=== PATIENT | male | born 1965 | race Caucasian/White ===

== ENCOUNTER 2017-03-07 15:03 | Inpatient (IN) | payer OTHER ==
--- NOTE | 2017-03-07 15:11 | PDOC ---
Rapid Medical Evaluation Time Seen by Provider: 03/07/17 15:05 Medical Evaluation: 03/07/17 15:05 I have performed a brief in-person evaluation of this patient. The patient presents with a chief complaint of: drop foot from disc herniation ( S1, L4/5) per neurosurgery MD Dr. Jeffrey (seen in office yesterday), pain hip/R calf & ankle, took 3 aleves a while ago Pertinent physical exam findings: no flexion to R foot I have ordered the following: preop labs, ekg The patient will proceed to the ED for further evaluation. Discharge Disposition - Diagnosis Foot drop - Referrals - Patient Instructions - Post Discharge Activity
--- NOTE | 2017-03-07 16:27 | PDOC ---
Attending Attestation - Resident Resident Name: Ricardo Mckay - ED Attending Attestation I have performed the following: I have examined & evaluated the patient, The case was reviewed & discussed with the resident, I agree w/resident's findings & plan, Exceptions are as noted - Medical Decision Making 03/07/17 16:27 I, Dr. Marcelina Bustillos, DO, attest that this document has been prepared under my direction and personally reviewed by me in its entirety. I further attest, that it accurately reflects all work, treatment, procedures and medical decision -making performed by me. 03/07/17 17:05 a/p: 51yo male with LBP sent in by Dr. Knowles for preop workup for OR tomorrow -foot drop on R decreased sensation on R had outpt MRI per DR. Knowles needs CT lumbar spine and preop labs, going to OR in AM will check labs, ekg, cxr tenderness of piriformis on R 03/07/17 19:[address] knowles who recommends admission to hospitalist case discussed with IM resident Kimberley who accepts pt under Dr. Alexandre <Marcelina Bustillos - Last Filed: 03/07/17 19:34> - HPI HPI: 03/07/17 20:29 Patient is a 51 year old male with a significant past medical history L4-L5, L5- S1 disc herniation, who presents to the ED with complaints of General right sided body pain. Patient reports experiencing right leg that began earlier this week. He reports pain has been chronic, but states it began to increase in intensity, prompting him to see Dr. knowles this morning. Patient states pain is a constant sharp pain that does not radiate. Patient states he began to show signs of right foot drop prompting physician to refer him to the ED for further evaluation. He reports that he is currently followed by a chiropractor for his herniated disk. Denies chest pain, SOB. Denies fevers, chills. Denies nausea, vomiting. Denies contact with sick individuals, out of state travelling. Denies trauma to affected area. Denies any other symptoms. Allergies: Mushroom Social history: No smoking. Social drinker. Medical marijuana use. Surgical history: None PM: Not on staff. - Physicial Exam PE: 03/07/17 20:29 GENERAL: Awake, alert, and fully oriented, in no acute distress HEAD: No signs of trauma EYES: PERRLA, EOMI, sclera anicteric, conjunctiva clear ENT: Auricles normal inspection, hearing grossly normal, nares patent, oropharynx clear without exudates. Moist mucosa NECK: Normal ROM, supple, no lymphadenopathy, JVD, or masses LUNGS: Breath sounds equal, clear to auscultation bilaterally. No wheezes, and no crackles HEART: Regular rate and rhythm, normal S1 and S2, no murmurs, rubs or gallops ABDOMEN: Soft, nontender, normoactive bowel sounds. No guarding, no rebound. No masses EXTREMITIES: +Decreases in right anterior tibia. + Normal range of motion, no edema. No clubbing or cyanosis. No cords, erythema, or tenderness NEUROLOGICAL: Cranial nerves II through XII grossly intact. Normal speech, normal gait SKIN: Warm, Dry, normal turgor, no rashes or lesions noted. Tender at the right piriformis - Medical Decision Making 03/07/17 20:29 Documentation prepared by Alexys Jameson, acting as medical van driver for Marcelina Bustillos DO, MD/. <Alexys Jameson - Last Filed: 03/07/17 20:29> Discharge Disposition - Discharge Dispostion Admit: Yes <Marcelina Bustillos - Last Filed: 03/07/17 19:34> <Alexys Jameson - Last Filed: 03/07/17 20:29> - Diagnosis Foot drop, Herniated lumbar intervertebral disc - Discharge Dispostion Condition at time of disposition: Fair - Referrals Referrals: STAFF,NOT ON [Primary Care Provider] - - Patient Instructions - Post Discharge Activity
--- NOTE | 2017-03-07 16:39 | PDOC ---
History of Present Illness - General Chief Complaint: Pain Stated Complaint: EVALUATION (PCP SENT) Time Seen by Provider: 03/07/17 15:05 - History of Present Illness Initial Comments: 03/07/17 16:37 Pt is a 51 y/o M with no significant PMH who presents to ED with R foot drop and R hip, leg, calf, and ankle pain. Pt states he's had an L4-L5, L5-S1 disc herniation for many months. He's been going to a chiropractor in hopes of avoiding surgery, but a few days ago, his pain became much worse prompting him to visit a neurosurgeon (Dr. Jeffrey). He was at Dr. Jeffrey's office yesterday and was told that he would need surgery, though no procedure was actually scheduled. Today, pt developed foot drop and worsening pain, so he came to the ED. Pt complaints of R hip, thigh, leg, and ankle pain. Pain is nonradiating, severe , sharp, and constant. Pt states he is unable to lift his toes. He also complains of sensation of cold and tingling in the affected foot. No other complaints. Denies nausea, vomiting, fever, chills, cp, sob, abdominal pain. Pt is stable. Past History - Past Medical History Allergies/Adverse Reactions: Allergies Allergy/AdvReac Type Severity Reaction Status Date / Time mushroom Allergy Verified 03/07/17 15:09 COPD: No Other medical history: HERNIATED DISC - Surgical History Abdominal Surgery: Yes (HERNIA) - Suicide/Smoking/Psychosocial Hx Smoking History: Never smoked Hx Alcohol Use: Yes (SOCIAL) Drug/Substance Use Hx: No Substance Use Type: None Review of Systems - Review of Systems Able to Perform ROS?: Yes Is the patient limited Chinese proficient: No Constitutional: Yes: Symptoms Reported. No: Chills, Fever Respiratory: Yes: Symptoms reported. No: Cough, Orthopnea, Shortness of Breath , Wheezing Cardiac (ROS): Yes: Symptoms Reported. No: Chest Pain, Edema, Irregular Heart Rate, Palpitations ABD/GI: Yes: Symptoms Reported. No: Abdominal Distended, Nausea, Poor Appetite , Poor Fluid Intake, Vomiting : Yes: Symptoms Reported. No: Burning, Dysuria Musculoskeletal: Yes: Joint Pain (right ankle), Muscle Weakness (right leg) Neurological: Yes: Symptoms reported, Paresthesia, Weakness *Physical Exam - Vital Signs Last Vital Signs Temp Pulse Resp BP Pulse Ox 98.7 F 94 H 20 167/109 98 03/07/17 15:04 03/07/17 15:04 03/07/17 15:04 03/07/17 15:04 03/07/17 15:04 - Physical Exam General Appearance: Yes: Nourished, Appropriately Dressed. No: Apparent Distress HEENT: positive: EOMI, MERLE, Normal ENT Inspection Respiratory/Chest: positive: Lungs Clear, Normal Breath Sounds. negative: Chest Tender, Respiratory Distress Cardiovascular: positive: Regular Rhythm, Regular Rate, S1, S2 Vascular Pulses: Dorsalis-Pedis (R): 2+, Doralis-Pedis (L): 2+ Gastrointestinal/Abdominal: positive: Normal Bowel Sounds, Flat, Soft. negative : Tender Extremity: positive: Normal Capillary Refill, Normal Inspection, Other (Right calf slightly smaller than left. atrophic). negative: Coldness, Pedal Edema, Swelling, Calf Tenderness Neurologic: positive: laundry aid II-XII NML intact, Fully Oriented, Alert, Normal Mood/ Affect, Normal Response. negative: Motor Strength 5/5 (right ankle dorsiflexion deficit. Plantar fexion intact. knee flexion/extension intact. Sensation intact. Vascularly intact), Sensory Deficit Deep Tendon Reflexes: Knee (L): 1+, Knee (R): 0 Medical Decision Making - Medical Decision Making 03/07/17 16:47 Pt is a 51 y/o M with no PMH who presented to ED with R foot drop since this afternoon. Pt was at neurosurgeon's office yesterday and was told he would need surg. Plan -call Dr. Jeffrey, neurosurgery -CBC -CMP -Pt/INR -PTT -Type & Screen -CT L spine -EKG -CXR *DC/Admit/Observation/Transfer Diagnosis at time of Disposition: Foot drop - Referrals Referrals: STAFF,NOT ON [Primary Care Provider] - - Patient Instructions - Post Discharge Activity
[2017-03-07 16:54] LABS: BASO % 0.4 % (0-2.0); EOS % 0.8 % (0-4.5); HEMATOCRIT 45.3 % (35.4-49); HEMOGLOBIN 15.6 GM/dL (11.7-16.9); LYMPH % 15.8 % (8-40); MCH 29.7 pg (25.7-33.7); MCHC 34.5 g/dl (32.0-35.9); MEAN CELL VOLUME 86.1 fl (80-96); MEAN PLT VOLUME 7.9 fl (7.5-11.1); MONO % 5.8 % (3.8-10.2); NEUT % 77.2 % (42.8-82.8); PLATELET COUNT 159 K/MM3 (134-434); RBC 5.26 M/mm3 (4.00-5.60)
[2017-03-07 17:15] LABS: INR 1.03 (0.82-1.09); PROTHROMBIN TIME (PATIENT) 11.6 SEC (9.98-11.88)
[2017-03-07 17:17] LABS: ACTIVATED PTT 30.7 SECONDS (26.9-34.4)
[2017-03-07 17:24] LABS: ALBUMIN 4.3 g/dl (3.4-5.0); ANION GAP 8 (8-16); BILIRUBIN,TOTAL 0.7 mg/dL (0.2-1.0); BLOOD UREA NITROGEN 17 mg/dL (7-18); CALCIUM 8.8 mg/dL (8.5-10.1); CHLORIDE 106 mmol/L (98-107); CO2 25 mmol/L (21-32); CREATININE 0.8 mg/dL (0.7-1.3); GLUCOSE,RANDOM 85 mg/dL (74-106); POTASSIUM 3.6 mmol/L (3.5-5.1); SGOT/AST 11 U/L (15-37); SGPT/ALT 25 U/L (12-78); SODIUM 139 mmol/L (136-145); TOT PROT 7.2 g/dl (6.4-8.2)
[2017-03-07 17:25] LABS: ALK PHOS 74 U/L (45-117)
--- NOTE | 2017-03-07 17:51 | PN ---
Progress Note (short form) - Note Progress Note: NEUROSURGERY Pt with chronic LBP and sciatica treated conservatively Since June c/o increasing LBP with R hip/buttock/posterior thigh/judd/foot pain Weaker recently Had undergone PT, chiropractor, pain management, meds without lasting relief Seen for first time yesterday and found with moderate R foot drop PE: AF, 167/109, in pain HEENT- NC/AT; Neck- supple; Cor- RR; Lung- CTA; Abd- obese, benign; Ext- no sign of DVT A/A/Ox4 CN- intact; Motor; R EHL/TA 2-3, R Ev/in 3-4-; Sensation- decreased LL/PP/ vibration R L5 > L4; + SLR on R at 30 degrees WBC 11, Hgb 15.6, platelet 159; INR 1.03, ptt 30.7; Cr 0.8 MRI 09/2016- R L4-5 paracentral disc protrusion with thecal sac and R L4/L5 root impingement; L L5-S1 foramenal stenosis Progressive R foot drop Repeat LS CT to confirm MRI findings and r/o significant changes from 09/2016 Medical clearance/optimization OR for R L4-5 decompression/microdiscectomy and R L5-S1 decompression Risks (bleeding, infection, CSF leak, neurological injury, DVT, PE) and potential benefits discussed Pros and cons treatment approaches discussed Consent obtained All questions answered Family in ED with pt
--- NOTE | 2017-03-07 19:30 | PN ---
Teaching Attending Note Name of Resident: Kimberley Onofre ATTENDING PHYSICIAN STATEMENT I saw and evaluated the patient. I reviewed the resident's note and discussed the case with the resident. I agree with the resident's findings and plan as documented. SUBJECTIVE: 51 Yo F with pmhx of disc herniation who presents right hip, ankle and leg pain. Dx'd with herniared L4-S1 10/12, went to PT, which did not relieve his symptoms. Saw this Am, and sent to ED for Sx. OBJECTIVE: Physical: VS: Vital Signs Period Temp Pulse Resp BP Sys/Cortes Pulse Ox Last 24 Hr 98.7 F 94 20 167/109 98 GEN: NAd, resting in bed, AA0X3 HEENT:NCAT, PERRL, throat without erythema or exudates CARD: RRR S1, S2 RESP: CTAB ABD: BSx4, NTD to palpation EXT: - C/C/E CBCD WBC 11.0 K/mm3 (4.0-10.0) H 03/07/17 16:40 RBC 5.26 M/mm3 (4.00-5.60) 03/07/17 16:40 Hgb 15.6 GM/dL (11.7-16.9) 03/07/17 16:40 Hct 45.3 % (35.4-49) 03/07/17 16:40 MCV 86.1 fl (80-96) 03/07/17 16:40 MCHC 34.5 g/dl (32.0-35.9) 03/07/17 16:40 RDW 13.0 % (11.9-15.9) 03/07/17 16:40 Plt Count 159 K/MM3 (134-434) 03/07/17 16:40 MPV 7.9 fl (7.5-11.1) 03/07/17 16:40 CMP Sodium 139 mmol/L (136-145) 03/07/17 16:40 Potassium 3.6 mmol/L (3.5-5.1) 03/07/17 16:40 Chloride 106 mmol/L (98-107) 03/07/17 16:40 Carbon Dioxide 25 mmol/L (21-32) 03/07/17 16:40 Anion Gap 8 (8-16) 03/07/17 16:40 BUN 17 mg/dL (7-18) 03/07/17 16:40 Creatinine 0.8 mg/dL (0.7-1.3) 03/07/17 16:40 Creat Clearance w eGFR > 60 (>60) 03/07/17 16:40 Random Glucose 85 mg/dL (74-106) 03/07/17 16:40 Calcium 8.8 mg/dL (8.5-10.1) 03/07/17 16:40 Total Bilirubin 0.7 mg/dL (0.2-1.0) 03/07/17 16:40 AST 11 U/L (15-37) L 03/07/17 16:40 ALT 25 U/L (12-78) 03/07/17 16:40 Alkaline Phosphatase 74 U/L (45-117) 03/07/17 16:40 Total Protein 7.2 g/dl (6.4-8.2) 03/07/17 16:40 Albumin 4.3 g/dl (3.4-5.0) 03/07/17 16:40 EKG: CT LS- Large Extruded right paramedial L4-L5 disc herniation MRI 09/2016- R L4-5 paracentral disc protrusion with thecal sac and R L4/L5 root impingement; L L5-S1 foramenal stenosis ASSESSMENT AND PLAN: 51 Yo F with pmhx of disc herniation who presents right hip, ankle and leg pain , who presents with foot drop 1.) L4-L5 Disc Herniation - NPO - COags - Type & Screen - IVF - EKG STAT 2.) DVT Ppx - SCDs
--- NOTE | 2017-03-07 19:41 | HP ---
CHIEF COMPLAINT: " Right hip, ankle, leg pain with right foot drop" PCP: Dr. Cathie Pritchard Neurosurgeon: Dr. Jeffrey HISTORY OF PRESENT ILLNESS: Patient is a 51 year old male presented to the ED with the chief complaints of " Right hip, ankle, leg pain with right foot drop". As per the patient, he was diagnosed to have Disc herniation L4-S1 in Sep, 2016. Since then he tried physical therapy, shots from pain management and recently since 8 weeks has been going to Chiropracter 3 times/week. However, it hasn't helped. Its getting worse. Since few days, he noticed right foot drop hence went to Dr. Jeffrey's office today and was recommended to come to the ED for surgery tomorrow. Denies chest pain, sob, cough, palpitation, abdominal pain, nausea or vomiting, headache, dizziness, vertigo. Bowel/Bladder habit normal. Sleep/Appetite normal. Has been taking Medical marijuana for his pain. ER course was notable for: (1) Afebrile, High blood pressure (taken while he was in pain) (2) EKG (3) Percocet Recent Travel: None PAST MEDICAL HISTORY: Disc herniation PAST SURGICAL HISTORY: Umbilical hernia repair, two sinus surgery, PURNIMA Social History: Smoking: Denies Alcohol: Occasional, last drink 2 days ago-1 glass of urine. Drugs: Denies Family History: Non contributory Allergies mushroom Allergy (Verified 03/07/17 15:09) DIARRHEA HOME MEDICATIONS: Home Medications Medication Instructions Recorded Fluticasone Prop 0.05% Nasal 1 - 2 spray NS DAILY 03/07/17 [Flonase -] Montelukast Sodium [Singulair] 10 mg PO DAILY 03/07/17 REVIEW OF SYSTEMS CONSTITUTIONAL: Absent: fever, chills, diaphoresis, generalized weakness, malaise, loss of appetite, weight change HEENT: Absent: rhinorrhea, nasal congestion, throat pain, throat swelling, difficulty swallowing, mouth swelling, ear pain, eye pain, visual changes CARDIOVASCULAR: Absent: chest pain, syncope, palpitations, irregular heart rate, lightheadedness , peripheral edema RESPIRATORY: Absent: cough, shortness of breath, dyspnea with exertion, orthopnea, wheezing, stridor, hemoptysis GASTROINTESTINAL: Absent: abdominal pain, abdominal distension, nausea, vomiting, diarrhea, constipation, melena, hematochezia GENITOURINARY: Absent: dysuria, frequency, urgency, hesitancy, hematuria, flank pain, genital pain MUSCULOSKELETAL: Absent: myalgia, arthralgia, joint swelling, back pain, neck pain SKIN: Absent: rash, itching, pallor HEMATOLOGIC/IMMUNOLOGIC: Absent: easy bleeding, easy bruising, lymphadenopathy, frequent infections ENDOCRINE: Absent: unexplained weight gain, unexplained weight loss, heat intolerance, cold intolerance NEUROLOGIC: Present: Foot drop Absent: headache, focal weakness or paresthesias, dizziness, unsteady gait, seizure, mental status changes, bladder or bowel incontinence PSYCHIATRIC: Absent: anxiety, depression, suicidal or homicidal ideation, hallucinations. PHYSICAL EXAMINATION Vital Signs - 24 hr 03/07/17 15:04 Temperature 98.7 F Pulse Rate 94 H Respiratory 20 Rate Blood Pressure 167/109 O2 Sat by Pulse 98 Oximetry (%) GENERAL: Patient is a Awake, alert, and fully oriented, in no acute distress. HEAD: Normal with no signs of trauma. EYES: Supple. EARS, NOSE, THROAT: Ears normal. Moist mucous membranes. NECK: Supple. LUNGS: Breath sounds equal, clear to auscultation bilaterally. No wheezes, and no crackles. No accessory muscle use. HEART: Regular rate and rhythm, normal S1 and S2 without murmur. ABDOMEN: Soft, nontender, not distended, normoactive bowel sounds, no guarding, no rebound, no masses. No hepatomegaly or splenomegaly. MUSCULOSKELETAL: Normal range of motion at all joints. No bony deformities or tenderness. No CVA tenderness. UPPER EXTREMITIES: 2+ pulses, warm, well-perfused. No cyanosis. No clubbing. No peripheral edema. LEFT LOWER EXTREMITIES: 2+ pulses, warm, well-perfused. No calf tenderness. No peripheral edema. RIGHT LOWER EXTREMITIES: Foot drop +, 2+ pulses, warm, well-perfused. No calf tenderness. No peripheral edema. NEUROLOGICAL: No facial droop, power 5/5 in all extremities. Normal speech. Gait unstable. PSYCHIATRIC: Cooperative. Good eye contact. Appropriate mood and affect. SKIN: Warm, dry, normal turgor, no rashes or lesions noted, normal capillary refill. Laboratory Results - last 24 hr 03/07/17 03/07/17 03/07/17 16:40 16:40 16:40 WBC 11.0 H RBC 5.26 Hgb 15.6 Hct 45.3 MCV 86.1 MCH 29.7 MCHC 34.5 RDW 13.0 Plt Count 159 MPV 7.9 Neutrophils % 77.2 Lymphocytes % 15.8 Monocytes % 5.8 Eosinophils % 0.8 Basophils % 0.4 PT with INR INR PTT (Actin FS) Sodium 139 Potassium 3.6 Chloride 106 Carbon Dioxide 25 Anion Gap 8 BUN 17 Creatinine 0.8 Creat Clearance w eGFR > 60 Random Glucose 85 Calcium 8.8 Total Bilirubin 0.7 AST 11 L ALT 25 Alkaline Phosphatase 74 Total Protein 7.2 Albumin 4.3 Blood Type O POSITIVE Antibody Screen Negative 03/07/17 16:40 WBC RBC Hgb Hct MCV MCH MCHC RDW Plt Count MPV Neutrophils % Lymphocytes % Monocytes % Eosinophils % Basophils % PT with INR 11.60 INR 1.03 PTT (Actin FS) 30.7 Sodium Potassium Chloride Carbon Dioxide Anion Gap BUN Creatinine Creat Clearance w eGFR Random Glucose Calcium Total Bilirubin AST ALT Alkaline Phosphatase Total Protein Albumin Blood Type Antibody Screen ASSESSMENT/PLAN: Patient is a 51 year old male with significant past medical history of disc herniation L4-S1 presented to the ED with the chief complaints of " Right hip, ankle, leg pain with right foot drop". # Disc herniation with right foot drop Didn't get better with physical therapy, chiropracter Admitted in Med-Surg/INpatient NPO after midnight Surgery tomorrow by Dr. Jeffrey at around 11:30am (ED physician spoke with Dr. Jeffrey) EKG CXR Percocet for pain control IV NS @ 100mls/hr after midnight # PURNIMA Continue CPAP # FEN IV NS @ 100mls/hr after midnight Electrolytes WNL NPO after midnight # Prophylaxis For DVT: ON Scds For GI: Not indicated # Code Status: Full Code # Dispo: Duration of stay unknown. Illness, Investigation and Plan of care explained to the patient. He verbalized understanding. Case discussed with Dr. Alexandre. Visit type - Emergency Visit Emergency Visit: Yes ED Registration Date: 03/07/17 Care time: The patient presented to the Emergency Department on the above date and was hospitalized for further evaluation of their emergent condition. - New Patient This patient is new to me today: Yes Date on this admission: 03/07/17 - Critical Care Critical Care patient: No
[2017-03-07] MEDS ORDERED: ACETAMINOPHEN 325 MG TABLET (FP) PO PRN (19:50)
[2017-03-07] MEDS ORDERED: CEFTRIAXONE IN IS-OSM DEXTROSE 2 GM/50 ML BAG IVPB SCH (20:00)
[2017-03-07] MEDS ORDERED: oxyCODONE HCL 5 MG TABLET ONE (22:52)
[2017-03-07] MEDS: oxyCODONE HCL 5 MG TABLET PO PRN (22:55)
[2017-03-08] MEDS ORDERED: BACITRACIN 15 GM TUBE TOPICAL OINTMENT TP ONE
[2017-03-08] MEDS ORDERED: SODIUM CHLORIDE 1,000 ML IV SCH (00:01)
[2017-03-08 05:53] VITALS: BMI 37.4
[2017-03-08] MEDS ORDERED: D5-1/2NS+20 MEQ KCL - 20 MEQ/1,000 ML INFUS.BAG IV SCH (06:00)
[2017-03-08] MEDS: oxyCODONE HCL 5 MG TABLET PO PRN (06:07)
[2017-03-08 08:32] LABS: BASO % 0.4 % (0-2.0); EOS % 1.3 % (0-4.5); HEMATOCRIT 43.3 % (35.4-49); HEMOGLOBIN 14.6 GM/dL (11.7-16.9); LYMPH % 19.3 % (8-40); MCH 28.9 pg (25.7-33.7); MCHC 33.8 g/dl (32.0-35.9); MEAN CELL VOLUME 85.3 fl (80-96); MEAN PLT VOLUME 7.7 fl (7.5-11.1); MONO % 8.2 % (3.8-10.2); NEUT % 70.8 % (42.8-82.8); PLATELET COUNT 140 K/MM3 (134-434); RBC 5.07 M/mm3 (4.00-5.60); RDW 12.7 % (11.9-15.9); WHITE BLOOD COUNT 8.4 K/mm3 (4.0-10.0)
[2017-03-08 08:48] LABS: CHLORIDE 106 mmol/L (98-107); POTASSIUM 3.8 mmol/L (3.5-5.1); SODIUM 139 mmol/L (136-145)
[2017-03-08 09:01] LABS: ANION GAP 7 (8-16); BLOOD UREA NITROGEN 17 mg/dL (7-18); CALCIUM 8.3 mg/dL (8.5-10.1); CO2 26 mmol/L (21-32); CREATININE 0.8 mg/dL (0.7-1.3); GLUCOSE,RANDOM 91 mg/dL (74-106)
--- NOTE | 2017-03-08 09:09 | CONS ---
DATE OF CONSULTATION: 03/07/2017 CHIEF COMPLAINT: Right foot drop. HISTORY OF PRESENT ILLNESS: The patient is a 51-year-old right-handed male with history of chronic lower back pain and sciatica, who sustained a fall in March 2016. He subsequently complained of increasing lower back pain in June 2016, with sciatica going down to the right buttock, posterior thigh, judd, and the right foot. This was associated with some paresthesia. Over the past few months, his pain continued to worsen despite physical therapy and anti-inflammatory medications. He has subsequently had to be under the care of a chiropractor. An MRI and CT scan were done which demonstrated stenosis and disk herniation. He also received pain management injections which helped with his pain marginally. He was seen for the first time yesterday for surgical evaluation, was found to have a moderate right foot drop. He was advised to go to the emergency room, but he was not able to come until today because of the lack of a ride. He denies bowel or bladder incontinence. PAST MEDICAL HISTORY: Significant for mild obesity and possible hypertension. CURRENT MEDICATIONS: Hydrocodone p.r.n. ALLERGIES: There is no known drug allergy. SOCIAL HISTORY: He does not smoke and only drinks alcohol socially. 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 REVIEW OF SYSTEMS: Otherwise negative for other major head and neck, cardiovascular, pulmonary, gastrointestinal, genitourinary, endocrinologic, neurologic, or psychological problems except for the above. PHYSICAL EXAMINATION: Vital Signs: Temperature is 98.7, blood pressure is 167/109 with pulse rate of 94. HEENT: Examination shows him to be normocephalic, atraumatic, anicteric. Neck: Supple. Coronary: Examination demonstrated regular rhythm without a murmur. Lungs: Clear to auscultation bilaterally. Abdomen: Soft, nontender, nondistended, with active bowel sounds. He is somewhat obese. Extremities: Examination shows no signs of DVT. He has intact distal pulses. Neurologic: He is awake and alert, oriented x4. Cranial nerve examination is intact 2-12. Motor examination shows 5/5 strength except for right foot dorsiflexion including tibialis anterior and extensor hallucis longus which are 2- to 3/5. Right foot inversion and eversion are 3-4 minus. Sensory examination demonstrated diminished sensation to pinprick, light touch, and vibratory sensation of the right L5 and L4 distribution. Deep tendon reflexes are hyporeflexic throughout. Back: Examination of the back shows right-sided paraspinal muscle spasm. He has a positive straight leg raise on the right side at 30 degrees. Cerebellar: Examination is normal. LABORATORY: Examination shows a white blood cell count of 11 and hemoglobin of 15.6. Platelet count is 159. INR is 1.03, and PTT is 30.7. BUN of 17 and creatinine 0.8. LFTs are normal. Chest x-ray shows no acute infiltrate. A CT scan of the lumbar spine is pending. MRI from 2017 demonstrated partially calcified right L4-5 paracentral disk protrusion with associated extruded fragment with resultant moderate right L4-5 thecal sac impingement as well as impingement of the right L5 greater than L4 nerve roots. There is also foraminal stenosis on the right side at L5-S1 with mild L5 nerve root impingement there as well. IMPRESSION: 1. Right L4-5 paracentral disk protrusion/extrusion and right L5-S1 foraminal stenosis. 2. Progressive, moderate right foot drop. 3. Hypertension. 4. Mild-moderate obesity. RECOMMENDATIONS: The patient presents with 7-to-8 month history of acute onset of recurrent lower back pain and sciatica. He had previously experienced chronic lower back pain. Conservative treatment has not helped adequately. He has developed a foot drop on neurologic examination; the duration of which is not known to me. Yesterday was the first time I had seen him. The patient has not improved much with conservative treatment including pain management injections and has significant neurological deficit. MRI demonstrated corresponding compressive lesions at L4- 5 and L5-S1. He is, therefore, a candidate for right L4-5 decompressive laminectomy and concurrent microdiscectomy. Right L5-S1 partial laminectomy is also recommended to decompress the neural foramen. The pros and cons of treatment approach were discussed with the patient. The risks of surgery include, but are not limited to, bleeding, infection, dural tear with CSF leak, neurological injury, increased thromboembolic risks, and other risks of general anesthesia. The patient understands the indications for the procedure, procedure in detail, risks and benefits and alternatives for the treatment of his condition and wished to proceed. No guarantees were given for a favorable outcome. Preoperative medical clearance by the hospitalist is recommended. I also explained the above to the patient's family who were in the emergency room. This included his cousin as well as his parents. The patient should be made n.p.o. after midnight. A repeat CT scan is ordered to assess the stenosis as patient is not 100% clear on the timing of his weakness and prior imaging was 4-5 months ago. PLACIDO AGUIAR M.D. MARILEE/[id number] MTDD
--- NOTE | 2017-03-08 09:11 | EKG ---
Test Reason : Blood Pressure : / mmHG Vent. Rate : 085 BPM Atrial Rate : 085 BPM P-R Int : 154 ms QRS Dur : 092 ms QT Int : 360 ms P-R-T Axes : 000 142 157 degrees QTc Int : 428 ms NORMAL SINUS RHYTHM LEFT POSTERIOR FASCICULAR BLOCK INFERIOR INFARCT , AGE UNDETERMINED ABNORMAL ECG NO PREVIOUS ECGS AVAILABLE Confirmed by LOUIE FOX MD ([id number]) on 03/08/2017 9:11:36 AM Referred By: Confirmed By:LOUIE FOX MD
--- NOTE | 2017-03-08 10:28 | PN ---
Progress Note (short form) - Note Progress Note: NEUROSURGERY Pt with chronic LBP and sciatica treated conservatively Since June c/o increasing LBP with R hip/buttock/posterior thigh/judd/foot pain Weaker recently Had undergone meds, PT, chiropractor, pain management, meds without lasting relief had been on medical marijuana PE: AF, VSS HEENT- NC/AT; Neck- supple; Cor- RR; Lung- CTA; Abd- obese, benign; Ext- no sign of DVT A/A/Ox4 CN- intact; Motor; R EHL/TA 2-3, R Ev/in 3-4-; Sensation- decreased LL/PP/ vibration R L5 > L4; + SLR on R at 30 degrees WBC 11, Hgb 15.6, platelet 159; INR 1.03, ptt 30.7; Cr 0.8 MRI 09/2016- R L4-5 paracentral disc protrusion with thecal sac and R L4/L5 root impingement; L L5-S1 foramenal stenosis Repeat LS CT- L4-5 extruded disc, L5-S1 foramenal stenosis Progressive R foot drop Medical clearance/optimization appreciated OR for R L4-5 decompression/microdiscectomy and R L5-S1 lateral recess/ foramenal decompression Risks (bleeding, infection, CSF leak, neurological injury, DVT, PE) and potential benefits discussed Pros and cons treatment approaches discussed Consent obtained in ED All questions answered
[2017-03-08] MEDS ORDERED: ONDANSETRON 4 MG/2 ML VIAL IVPUSH PRN ×2 (10:38→15:11)
[2017-03-08] MEDS ORDERED: diazePAM 2 MG TABLET PO ONE (11:00)
[2017-03-08] MEDS ORDERED: BUPIVACAINE HCL/PF 0.5% (5MG/ML) 10 ML VIAL ONE (11:01)
[2017-03-08] MEDS ORDERED: THROMBIN (BOVINE) 5,000 UNIT VIAL TP ONE ×2 (11:02→12:53)
[2017-03-08] MEDS ORDERED: ROCURONIUM BROMIDE 50 MG/5 ML VIAL ONE ×2 (11:38→14:11)
[2017-03-08] MEDS ORDERED: PROPOFOL 20 ML ONE (11:38)
[2017-03-08] MEDS ORDERED: fentaNYL CITRATE 250 MCG/5 ML VIAL ONE (11:38)
[2017-03-08] MEDS ORDERED: ONDANSETRON 4 MG/2 ML VIAL ONE (11:39)
[2017-03-08] MEDS ORDERED: LIDOCAINE HCL/PF 2% SDV 5ML VIAL ONE (11:39)
[2017-03-08] MEDS ORDERED: DEXAMETHASONE SOD PHOSPHATE 4 MG/1 ML VIAL ONE (11:39)
[2017-03-08] MEDS ORDERED: MIDAZOLAM HCL 2 MG/2 ML SINGLE DOSE VIAL ONE (11:39)
[2017-03-08] MEDS ORDERED: ceFAZolin SODIUM 1 GM VIAL IVPB ONE (12:26)
[2017-03-08] MEDS ORDERED: ceFAZolin SODIUM 1 GM VIAL ONE (12:35)
[2017-03-08] MEDS ORDERED: BACITRACIN 50,000 UNITS VIAL TP ONE (12:53)
[2017-03-08] MEDS ORDERED: BUPIVACAINE HCL/PF 0.5% (5MG/ML) 10 ML VIAL IJ ONE ×2 (14:16)
[2017-03-08] MEDS ORDERED: GLYCOPYRROLATE 0.2 MG/1 ML VIAL ONE (14:17)
[2017-03-08] MEDS ORDERED: NEOSTIGMINE METHYLSULFATE 0.5 MG/ML - 10 ML MDV ONE (14:17)
[2017-03-08] MEDS ORDERED: BACITRACIN 15 GM TUBE TOPICAL OINTMENT ONE (14:21)
--- NOTE | 2017-03-08 14:36 | MSN ---
Progress Note (short form) - Note Progress Note: Subjective: Patient was seen this morning and states that leg pain has improved with percocet (rate 2/10). He complains of a headache and nausea which he attributes to medical marijuana withdrawal Objective: Last Vital Signs Temp Pulse Resp BP Pulse Ox 98.2 F 84 18 145/71 98 03/08/17 09:02 03/08/17 09:02 03/08/17 09:06 03/08/17 09:02 03/08/17 04:15 General: patient appears nauseated and in no acute distress HEENT: normocephalic, atraumatic. PERRLA. mucous membrane moist. Heart: RRR. No rubs, murmurs or gallops appreciated Lungs: CTA B/L Abdomen: soft, nontender, normoactive bowel sounds x4 Extremities: sensation intact, 5/5 strength B/L on UE throughout. pulses 2+ B/L on UE and LE left LE: sensation intact 5/5 strength throughout right LE: 5/5 strength on hip flexion/ extension, knee flexion/ extension. 2/ 5 of ankle dorsiflexion and plantar flexion. decreased sensation of L4 CBC, BMP 03/08/17 07:00 03/08/17 07:00 INR, PTT INR 1.03 (0.82-1.09) 03/07/17 16:40 Imaging: x-ray on 03/08/17: no acute pathology CT of spine on 03/07/17: large extruded right paramedian L4-L5 disc herniation is seen Assessment/ Plan: 51yo male with pmh of L4-S1 disc herniation who presented with right hip, leg pain and foot drop. # right LE pain and foot drop secondary to L4-S1 disc herniation - surgery by Dr. Jeffrey today - Oxycodone HCl (Roxicodone -) 5 mg PO Q6H PRN pain level 4-6 - Acetaminophen (Tylenol -) 650 mg PO Q6H PRN moderate pain # nausea probably due to pain or hx of marijuana use - Ondansetron HCl (Zofran Injection) 4 mg IVPUSH Q4H PRN nausea # FEN - F: Potassium Chloride/Dextrose/Sod Cl (D5-1/2ns+20 Meq Kcl -) 20 meq in 1, 000 mls @ 100 mls/hr IV ASDIR [facility] - E: wnl - N: NPO due to surgery # DVT prophylaxis - SCDs
--- NOTE | 2017-03-08 14:39 | OP ---
Operative Note - Note: Operative Date: 03/08/17 Pre-Operative Diagnosis: R L4-5 paracentral HNP, R L5-S1 lateral recess/ foramenal stenosis; moderate R foot drop Operation: Partial R L4, L5, S1 laminectomies, medial facetectomies, foramenotomies; microdissection Findings: fibrotic and calcified R L4-5 paracentral HNP; R L5-S1 foramenal stenosis Post-Operative Diagnosis: Same as Pre-op Surgeon: Jerome Jeffrey Purification Operator Helper: Ben Nunn Anesthesiologist/CREMATOR: Karissa Dallas MD Anesthesia: General Estimated Blood Loss (mls): 75 Operative Report Dictated: Yes
--- NOTE | 2017-03-08 15:12 | PN ---
Progress Note (short form) - Note Progress Note: NEUROSURGERY In PACU No sciatica R leg PE: AF, VSS; O2 sat 99% Motor: R EHL/TA 2-3, R ev/in 3-4-; Sensation- decreased LT R L5 > L4 s/p R L4-5 decompression/microdiscectomy and R L5-S1 lateral recess/foramenal decompression Family updated Cont meds HISTOPATHOLOGY TECHNICIAN for pain
--- NOTE | 2017-03-08 15:14 | SURG ---
Surgery Bender Machine Note Bender Machine: Ben Nunn PA-C Date of Service: 03/08/17 Diagnosis: Right L4-5 paracentral HNP, Right L5-S1 lateral recess/foramenal stenosis; moderate Right foot drop Procedure: Partial Right L4, L5, S1 laminectomies, medial facetectomies, foramenotomies; microdissection I was present for the entirety of the operative procedure. For further detail, please refer to operative report. Visit type - Case Type Case Type: ED Admission - New patient This patient is new to me today: Yes Date on this admission: 03/08/17
[2017-03-08] MEDS ORDERED: LACTATED RINGERS SOLUTION 1,000 ML IV SCH (15:15)
[2017-03-08] MEDS ORDERED: HYDROmorphone *PCA* 10MG/50ML DISP.SYRIN PCA ONE (15:52)
--- NOTE | 2017-03-08 15:59 | PN ---
Teaching Attending Note Name of Resident: Maria C Amador ATTENDING PHYSICIAN STATEMENT I saw and evaluated the patient. I reviewed the resident's note and discussed the case with the resident. I agree with the resident's findings and plan as documented. SUBJECTIVE:c/o nausea and CAREY. states both began when IV was started this AM. assoc iwth diaphoresis. states he has no CP, SOB, fever, chills, V/C/D. has had surgery in the past and no complication with anesthesia. METS 4-8 OBJECTIVE: Last Vital Signs Temp Pulse Resp BP Pulse Ox 99.0 F 100 H 20 182/98 100 03/08/17 15:04 03/08/17 15:04 03/08/17 15:04 03/08/17 15:04 03/08/17 15:04 General diaphoretic, CV S1 S2 tachy lungs CTA B/L no wheezing/rales/rhonchi refused abdomen and extremity exam ASSESSMENT AND PLAN: 51yo M with PMH asthma and disc herniation presented with R hip and ankle pain and found to have L4-L5 disc herniation 1. L4-L4 disc herniation- pt is low risk for intermediate risk procedure. NPO for Laminectomy today. further management by neurosurgery. ivf, pain control. 2. Nausea- expected anxiety for surgery. when went to re-assess pt after zofran was given symptoms were relieved. 3. Leukocytosis- likely reactive. no signs of infection 4. DVT ppx- SCD. will start pharmacologic anticoagulation at discretion of neursurgeon 5. spoke iw family present at bedside. all questions answered. agree with plan. Will possibly require JOE on discharge pending PT assessment
[2017-03-08] MEDS: diazePAM 5 MG TABLET PO SCH ×2 (17:01→21:32)
--- NOTE | 2017-03-08 17:24 | PN ---
Physical Exam: SUBJECTIVE: Patient seen and examined. Pt c/p headache and nausea, with associated diaphoresis. Zofran and Tylenol given with good effect. Pt denies chest pain, sob, fever, chills. OBJECTIVE: Vital Signs Period Temp Pulse Resp BP Sys/Cortes Pulse Ox Last 24 Hr 98 F-99.0 F 84-102 16-20 145-182/71-98 97-100 GENERAL: The patient is awake, alert, and fully oriented, in no acute distress. Pt is anxious for surgery. LUNGS: Breath sounds equal, clear to auscultation bilaterally, no wheezes, no crackles, no accessory muscle use. HEART: Regular rate and rhythm, S1, S2 without murmur, rub or gallop. ABDOMEN: Soft, nontender, nondistended. EXTREMITIES: Warm, well-perfused, no edema. PSYCH: Normal mood, normal affect. SKIN: Warm, dry, normal turgor, no rashes or lesions noted Laboratory Results - last 24 hr 03/07/17 03/07/17 03/07/17 16:40 16:40 16:40 WBC RBC Hgb Hct MCV MCH MCHC RDW Plt Count MPV Neutrophils % Lymphocytes % Monocytes % Eosinophils % Basophils % PT with INR 11.60 INR 1.03 PTT (Actin FS) 30.7 Sodium 139 Potassium 3.6 Chloride 106 Carbon Dioxide 25 Anion Gap 8 BUN 17 Creatinine 0.8 Creat Clearance w eGFR > 60 Random Glucose 85 Calcium 8.8 Total Bilirubin 0.7 AST 11 L ALT 25 Alkaline Phosphatase 74 Total Protein 7.2 Albumin 4.3 Blood Type O POSITIVE Antibody Screen Negative 03/08/17 03/08/17 07:00 07:00 WBC 8.4 RBC 5.07 Hgb 14.6 Hct 43.3 MCV 85.3 MCH 28.9 MCHC 33.8 RDW 12.7 Plt Count 140 MPV 7.7 Neutrophils % 70.8 Lymphocytes % 19.3 D Monocytes % 8.2 Eosinophils % 1.3 Basophils % 0.4 PT with INR INR PTT (Actin FS) Sodium 139 Potassium 3.8 Chloride 106 Carbon Dioxide 26 Anion Gap 7 L BUN 17 Creatinine 0.8 Creat Clearance w eGFR Random Glucose 91 Calcium 8.3 L Total Bilirubin AST ALT Alkaline Phosphatase Total Protein Albumin Blood Type Antibody Screen Active Medications Generic Name Dose Route Start Last Admin Trade Name Freq PRN Reason Stop Dose Admin Acetaminophen 650 mg 03/07/17 19:50 Tylenol - PO Q6H PRN MODERATE PAIN Diazepam 5 mg 03/08/17 14:45 03/08/17 17:01 Valium - PO Not Given TID [facility] Docusate Sodium 100 mg 03/08/17 22:00 Colace - PO TID [facility] Fentanyl 50 mcg 03/08/17 15:11 Sublimaze Injection - IVPUSH [id number] PRN PAIN-PACU ORDER X 4 DOSES ONLY Hydromorphone HCl 0 mg 03/08/17 16:00 Dilaudid Assurance Senior Manager Insurance - GEOPHYSICAL PARTY CHIEF 03/15/17 15:48 GEOPHYSICAL PARTY CHIEF [facility] Protocol Sodium Chloride 1,000 mls @ 100 mls/hr 03/08/17 00:01 Normal Saline - IV ASDIR [facility] Cefazolin Sodium 1 gm in 10 mls @ 100 mls/hr 03/08/17 18:00 Ancef - IVPUSH 03/09/17 02:05 Q8H-IV [facility] Potassium Chloride/Dextrose/Sod Cl 20 meq in 1,000 mls @ 100 mls/hr 03/08/17 14:45 D5-1/2ns+20 Meq Kcl - IV ASDIR [facility] Lactated Ringer's 1,000 mls @ 125 mls/hr 03/08/17 15:15 Lactated Ringers Solution IV ASDIR [facility] Ondansetron HCl 4 mg 03/08/17 10:38 03/08/17 10:51 Zofran Injection IVPUSH 4 mg Q4H PRN Administration NAUSEA AND/OR VOMITING Ondansetron HCl 4 mg 03/08/17 15:11 Zofran Injection IVPUSH Q6H PRN NAUSEA AND/OR VOMITING Oxycodone HCl 5 mg 03/07/17 19:49 03/08/17 06:07 Roxicodone - PO 5 mg Q6H PRN Administration PAIN LEVEL 4 - 6 IMAGIN03/07/17 CXR -> no airspace consolidation or pleural effusion 03/07/[address] -> large extended Right paramedian L4-L5 herniation. 03/08/17 CXR -> no acute pathology ASSESSMENT/PLAN: 51M with PMH of disc herniation, presented with Right hip/ankle/leg pain and Right foot drop, admitted for neurosurgery with Dr. Jeffrey. # L4-L5 disc herniation - s/p laminectomy today with Dr. Jeffrey - post-op care per neurosurgery - Dilaudid GEOPHYSICAL PARTY CHIEF and Oxycodone for pain management # leukocytosis - likely reactive - resolved # FEN - Fluids: LR @ 125 ml/hr - Electrolytes: wnl, continue to monitor - Nutrition: clear liquids # Prophylaxis - DVT ppx with naomi SCDs Visit type - Emergency Visit Emergency Visit: Yes ED Registration Date: 03/07/17 Care time: The patient presented to the Emergency Department on the above date and was hospitalized for further evaluation of their emergent condition. - New Patient This patient is new to me today: Yes Date on this admission: 03/08/17 - Critical Care Critical Care patient: No
[2017-03-08] MEDS ORDERED: PT OWN MED DRAWER 7, Y5N ONE (18:25)
[2017-03-08] MEDS: CEFAZOLIN 1 GM PUSH 1 GM/10 ML DISP.SYRIN IVPUSH SCH (18:28)
[2017-03-08] MEDS: D5-1/2NS+20 MEQ KCL - 20 MEQ/1,000 ML INFUS.BAG IV SCH (18:38)
[2017-03-08] MEDS: HYDROmorphone *PCA* 10MG/50ML DISP.SYRIN PCA SCH (19:07)
[2017-03-08] MEDS: DOCUSATE SODIUM 100 MG CAPSULE (FP) PO SCH (21:32)
[2017-03-09] MEDS ORDERED: PT OWN MED DRAWER 7, Y5N ONE (01:59)
[2017-03-09] MEDS: CEFAZOLIN 1 GM PUSH 1 GM/10 ML DISP.SYRIN IVPUSH SCH (02:02)
[2017-03-09] MEDS: D5-1/2NS+20 MEQ KCL - 20 MEQ/1,000 ML INFUS.BAG IV SCH ×3 (02:09→23:59)
[2017-03-09] MEDS: DOCUSATE SODIUM 100 MG CAPSULE (FP) PO SCH ×3 (05:37→21:57)
[2017-03-09] MEDS: diazePAM 5 MG TABLET PO SCH ×3 (05:38→21:58)
[2017-03-09 07:14] LABS: HEMATOCRIT 40.8 % (35.4-49); MCH 29.3 pg (25.7-33.7); MCHC 34.3 g/dl (32.0-35.9); MEAN CELL VOLUME 85.2 fl (80-96); MEAN PLT VOLUME 7.3 fl (7.5-11.1); PLATELET COUNT 156 K/MM3 (134-434); RBC 4.79 M/mm3 (4.00-5.60); RDW 12.6 % (11.9-15.9); WHITE BLOOD COUNT 15.4 K/mm3 (4.0-10.0)
--- NOTE | 2017-03-09 08:23 | PN ---
Progress Note (short form) - Note Progress Note: NEUROSURGERY On 6S No sciatica R leg Some incisional pain PE: AF, VSS CV- RRR; Lungs- CTA; Abd- obese, benign; Ext- no sign of DVT Motor: R EHL/TA 2, R ev/in 3-4-; Sensation- decreased LT R L5 > L4 s/p R L4-5 decompression/microdiscectomy and R L5-S1 lateral recess/foramenal decompression Intra-op findings (calcified fibrotic disc and retained stomach content) d/w pt Cont meds Encouraged R foot exercises GOLF COURSE MECHANIC for pain PT/OOB SCD's SQ heparin
[2017-03-09] MEDS ORDERED: DEXAMETHASONE SOD PHOSPHATE 4 MG/1 ML VIAL IVPUSH ONE (09:15)
--- NOTE | 2017-03-09 10:04 | MSN ---
Progress Note (short form) - Note Progress Note: Subjective: Patient was seen this morning status post lumbar laminectomy day 1 and is doing well. Patient only has aches of his surgical site and the posterior aspect of his right knee. He states that he has not needed his pain medication since last night. Patient denies N/V/D, chest pain, SOB. Objective: Last Vital Signs Temp Pulse Resp BP Pulse Ox 97.8 F 91 H 20 154/90 99 03/09/17 09:00 03/09/17 09:01 03/09/17 09:03 03/09/17 09:01 03/09/17 09:03 General: patient appears nauseated and in no acute distress HEENT: normocephalic, atraumatic. PERRLA. mucous membrane moist. Heart: RRR. No rubs, murmurs or gallops appreciated Lungs: CTA B/L Abdomen: soft, nontender, normoactive bowel sounds x4 Extremities: sensation intact, 5/5 strength B/L on UE throughout. pulses 2+ B/L on UE and LE left LE: sensation intact 5/5 strength throughout right LE: 5/5 strength on hip flexion/ extension, knee flexion/ extension. 2/ 5 of ankle dorsiflexion. 4/5 plantar flexion. decreased sensation of L4 CBC, BMP 03/09/17 07:00 03/08/17 07:00 IMAGIN03/07/17 CXR -> no airspace consolidation or pleural effusion 03/07/[address] -> large extended Right paramedian L4-L5 herniation. 03/08/17 CXR -> no acute pathology Assessment/ Plan: 51yo male with pmh of L4-S1 disc herniation who presented with right hip, leg pain and foot drop is status post lumbar decompression/ microdiscectomy day 1. # right LE pain and foot drop secondary to L4-S1 disc herniation - right L5-L5 decompressoin/ microdiscectomy and R L5-S1 lateral recess/ foramenal decompression performed by Dr. Jeffrey on 03/08/17 - dilaudid prn - Oxycodone HCl (Roxicodone -) 5 mg PO Q6H PRN pain level 4-6 - Acetaminophen (Tylenol -) 650 mg PO Q6H PRN moderate pain - per Dr. Jeffrey's rec: encourage foot exercises, PT/OOB # Leukocytosis likely secondary to surgery post-op day 1 - continue to monitor # nausea probably due to pain or hx of marijuana use - Ondansetron HCl (Zofran Injection) 4 mg IVPUSH Q4H PRN nausea # FEN - F: Potassium Chloride/Dextrose/Sod Cl (D5-1/2ns+20 Meq Kcl -) 20 meq in 1, 000 mls @ 100 mls/hr IV ASDIR FLOR[facility]INO - E: wnl - N: NPO due to surgery # DVT prophylaxis - SCDs
[2017-03-09] MEDS ORDERED: DEXAMETHASONE SOD PHOSPHATE 4 MG/1 ML VIAL ONE (10:30)
--- NOTE | 2017-03-09 15:53 | PN ---
Progress Note (short form) - Note Progress Note: Post op day#1.S/P Lumber laminectomy under GA uneventful.Patient stable and c/o pain score of 3-4/10 on Dilaudid ACID BLOWER and requested to continue ACID BLOWER today.Will continue ACID BLOWER today and will f/u tomorrow.
--- NOTE | 2017-03-09 16:32 | PN ---
Physical Exam: SUBJECTIVE: Patient seen and examined. Pt reports only mild back pain s/p surgery and improvement in Right sciatic pain. Pt reports only having used his Dilaudid GLASS PRESSER once. +flatus. Pt denies nausea, chest pain, sob, abdominal pain , fever, chills. OBJECTIVE: Vital Signs Period Temp Pulse Resp BP Sys/Cortes Pulse Ox Last 24 Hr 97.8 F-99.1 F 91-99 17-20 133-154/50-90 99-99 GENERAL: The patient is awake, alert, and fully oriented, in no acute distress. LUNGS: Breath sounds equal, clear to auscultation bilaterally, no wheezes, no crackles, no accessory muscle use. HEART: Regular rate and rhythm, S1, S2 without murmur, rub or gallop. ABDOMEN: Soft, nontender, nondistended, normoactive bowel sounds. EXTREMITIES: Warm, well-perfused, no edema. PSYCH: Normal mood, normal affect. SKIN: Warm, dry, normal turgor, no rashes or lesions noted Laboratory Results - last 24 hr 03/09/17 07:00 WBC 15.4 H D RBC 4.79 Hgb 14.0 Hct 40.8 MCV 85.2 MCH 29.3 MCHC 34.3 RDW 12.6 Plt Count 156 MPV 7.3 L Active Medications Generic Name Dose Route Start Last Admin Trade Name Freq PRN Reason Stop Dose Admin Acetaminophen 650 mg 03/07/17 19:50 Tylenol - PO Q6H PRN MODERATE PAIN Diazepam 5 mg 03/08/17 14:45 03/09/17 13:39 Valium - PO Not Given [facility] Docusate Sodium 100 mg 03/08/17 22:00 03/09/17 13:39 Colace - PO Not Given [facility] Fentanyl 50 mcg 03/08/17 15:11 Sublimaze Injection - IVPUSH [id number] PRN PAIN-PACU ORDER X 4 DOSES ONLY Hydromorphone HCl 0 mg 03/08/17 16:00 03/08/17 19:07 Dilaudid Earth Auger Operator - GLASS PRESSER 03/15/17 15:48 Not Given [facility] Protocol Potassium Chloride/Dextrose/Sod Cl 20 meq in 1,000 mls @ 100 mls/hr 03/08/17 14:45 03/09/17 13:39 D5-1/2ns+20 Meq Kcl - IV 100 mls/hr ASDIR [facility] Administration Ondansetron HCl 4 mg 03/08/17 10:38 03/08/17 10:51 Zofran Injection IVPUSH 4 mg Q4H PRN Administration NAUSEA AND/OR VOMITING Ondansetron HCl 4 mg 03/08/17 15:11 Zofran Injection IVPUSH Q6H PRN NAUSEA AND/OR VOMITING Oxycodone HCl 5 mg 03/07/17 19:49 03/08/17 06:07 Roxicodone - PO 5 mg Q6H PRN Administration PAIN LEVEL 4 - 6 ASSESSMENT/PLAN: 51M with PMH of disc herniation, presented with Right hip/ankle/leg pain and Right foot drop, admitted for neurosurgery with Dr. Jeffrey. # L4-L5 disc herniation - s/p L4-5 decompression/microdiscectomy and L5-S1 lateral recess/foramenal decompression with Dr. Jeffrey - POD 1 - post-op care per neurosurgery - Dilaudid GLASS PRESSER and Percocet for pain management - encourage Right foot exercises with PT # leukocytosis - 2/2 post-op - continue to monitor # FEN - Fluids: D5-1/2NS + 20meq KCl @ 100 ml/hr - Electrolytes: continue to monitor - Nutrition: clear liquids # Prophylaxis - DVT ppx with Heparin TID Visit type - Emergency Visit Emergency Visit: Yes ED Registration Date: 03/07/17 Care time: The patient presented to the Emergency Department on the above date and was hospitalized for further evaluation of their emergent condition. - New Patient This patient is new to me today: No - Critical Care Critical Care patient: No
[2017-03-09] MEDS: HYDROmorphone *PCA* 10MG/50ML DISP.SYRIN PCA SCH (17:47)
--- NOTE | 2017-03-09 18:33 | PN ---
Teaching Attending Note Name of Resident: Maria C Amador ATTENDING PHYSICIAN STATEMENT I saw and evaluated the patient. I reviewed the resident's note and discussed the case with the resident. I agree with the resident's findings and plan as documented. SUBJECTIVE: Patient complains of mild back pain, relieved with Dilaudid POLICE ACADEMY PROGRAM COORDINATOR. OBJECTIVE: Vital Signs Period Temp Pulse Resp BP Sys/Cortes Pulse Ox Last 24 Hr 97.8 F-99.1 F 91-99 17-20 133-154/50-90 99-99 HEART: S1S2, RRR LUNGS: Clear ABDOMEN: Soft, non-tender, non-distended, normal BS EXTREMITIES: No edema Laboratory Results - last 24 hr 03/09/17 07:00 WBC 15.4 H D RBC 4.79 Hgb 14.0 Hct 40.8 MCV 85.2 MCH 29.3 MCHC 34.3 RDW 12.6 Plt Count 156 MPV 7.3 L Current Medications Generic Name Dose Route Start Last Admin Trade Name Freq PRN Reason Stop Dose Admin Acetaminophen 650 mg 03/07/17 19:50 Tylenol - PO Q6H PRN MODERATE PAIN Diazepam 5 mg 03/08/17 14:45 03/09/17 13:39 Valium - PO Not Given TID [facility] Docusate Sodium 100 mg 03/08/17 22:00 03/09/17 13:39 Colace - PO Not Given TID [facility] Fentanyl 50 mcg 03/08/17 15:11 Sublimaze Injection - IVPUSH [id number] PRN PAIN-PACU ORDER X 4 DOSES ONLY Heparin Sodium (Porcine) 5,000 unit 03/09/17 22:00 Heparin - SQ TID [facility] Hydromorphone HCl 0 mg 03/08/17 16:00 03/09/17 17:47 Dilaudid Knock Out Hand - POLICE ACADEMY PROGRAM COORDINATOR 03/15/17 15:48 Not Given POLICE ACADEMY PROGRAM COORDINATOR [facility] Protocol Potassium Chloride/Dextrose/Sod Cl 20 meq in 1,000 mls @ 100 mls/hr 03/08/17 14:45 03/09/17 13:39 D5-1/2ns+20 Meq Kcl - IV 100 mls/hr ASDIR [facility] Administration Ondansetron HCl 4 mg 03/08/17 10:38 03/08/17 10:51 Zofran Injection IVPUSH 4 mg Q4H PRN Administration NAUSEA AND/OR VOMITING Ondansetron HCl 4 mg 03/08/17 15:11 Zofran Injection IVPUSH Q6H PRN NAUSEA AND/OR VOMITING Oxycodone HCl 5 mg 03/07/17 19:49 03/08/17 06:07 Roxicodone - PO 5 mg Q6H PRN Administration PAIN LEVEL 4 - 6 ASSESSMENT AND PLAN: This is a 51 yo man with history of asthma, lumbar herniated disc who presented to the ED with right hip and ankle pain and was found to have L4-L5 disc herniation. 1. L4-5 disc herniation with right L4-L5 root impingement and right L5-S1 foraminal stenosis, right sciatica, right foot drop - s/p partial L4, L5, S1 laminectomies, medial facetectomies, foramenotomies , microdissection - Continue Dilaudid POLICE ACADEMY PROGRAM COORDINATOR - plan to discontinue tomorrow - Physical therapy 2. Asthma - Stable 3. Disposition - Discharge home vs short-term rehab depending on how he progresses with PT
[2017-03-09] MEDS: HEPARIN NA (PORCINE) 5,000 UNITS/ML 1ML VIAL SQ SCH (21:57)
[2017-03-10] MEDS: HEPARIN NA (PORCINE) 5,000 UNITS/ML 1ML VIAL SQ SCH ×2 (06:20→14:48)
[2017-03-10] MEDS: diazePAM 5 MG TABLET PO SCH ×2 (06:20→14:48)
[2017-03-10] MEDS: DOCUSATE SODIUM 100 MG CAPSULE (FP) PO SCH ×2 (06:20→14:48)
--- NOTE | 2017-03-10 08:25 | PN ---
Progress Note (short form) - Note Progress Note: Anesthesia Post op/pain Pt seen and examined S:alert and awake comfortable O: Vital Signs Temperature 98.0 F 03/10/17 05:55 Pulse Rate 86 03/10/17 05:55 Respiratory Rate 20 03/10/17 05:55 Blood Pressure 149/87 03/10/17 05:55 O2 Sat by Pulse Oximetry (%) 99 03/09/17 22:00 CBC, BMP 03/08/17 07:00 A/P: Current Active Problems Foot drop (Acute) Herniated lumbar intervertebral disc (Acute) s/p lumbar laminectomy Doing well post op D/C GUYLINE OPERATOR Continue current care Nael Torres MD
[2017-03-10 08:32] LABS: HEMATOCRIT 40.3 % (35.4-49); HEMOGLOBIN 13.8 GM/dL (11.7-16.9); MCH 29.2 pg (25.7-33.7); MCHC 34.4 g/dl (32.0-35.9); MEAN CELL VOLUME 85.1 fl (80-96); MEAN PLT VOLUME 7.8 fl (7.5-11.1); PLATELET COUNT 152 K/MM3 (134-434); RBC 4.73 M/mm3 (4.00-5.60); RDW 12.3 % (11.9-15.9); WHITE BLOOD COUNT 13.2 K/mm3 (4.0-10.0)
--- NOTE | 2017-03-10 10:29 | PN ---
Progress Note (short form) - Note Progress Note: NEUROSURGERY POD #2 Advanced to regular No sciatica R leg Able to sleep on back, sit up, walk without much discomfort Much improved Some incisional pain PE: AF, VSS Dressing falling off, no active drainage at all, changed CV- RRR; Lungs- CTA; Abd- obese, benign; Ext- no sign of DVT Motor: R EHL/TA 3-4-, R ev/in 4-; Sensation- Improved R L4/L5/S1 sensation to LT s/p R L4-5 decompression/microdiscectomy and R L5-S1 lateral recess/foramenal decompression with improved neurological condition Intra-op findings (calcified fibrotic disc and retained stomach content) d/w pt Change to PO meds Encouraged R foot exercises PT/OOB SCD's On SQ heparin D/C instructions given
[2017-03-10] MEDS ORDERED: oxyCODONE HCL 5 MG TABLET PO PRN (10:30)
[2017-03-10] MEDS: D5-1/2NS+20 MEQ KCL - 20 MEQ/1,000 ML INFUS.BAG IV SCH (14:48)
--- NOTE | 2017-03-10 14:57 | DS ---
Physical Exam: SUBJECTIVE: Patient seen and examined. asymptomatic. states he experiences no pain while laying at rest or ambulating. have walked to the end of [facility] back twice without difficulty. 2 BM since yesterday. denies Cp, SOB, fever, chills, N/V/C/D, requesting to go home. OBJECTIVE: Vital Signs Period Temp Pulse Resp BP Sys/Cortes Pulse Ox Last 24 Hr 98.0 F-99.0 F 86-96 20-20 142-149/78-99 97-99 PHYSICAL EXAM GENERAL: The patient is awake, alert, and fully oriented, in no acute distress. HEAD: Normal with no signs of trauma. EYES: PERRL, extraocular movements intact, sclera anicteric, conjunctiva clear. ENT: Ears normal, nares patent, oropharynx clear without exudates, moist mucous membranes. NECK: Trachea midline, full range of motion, supple. LUNGS: Breath sounds equal, clear to auscultation bilaterally, no wheezes, no crackles, no accessory muscle use. HEART: Regular rate and rhythm, S1, S2 without murmur, rub or gallop. ABDOMEN: Soft, nontender, nondistended, normoactive bowel sounds, no guarding, no rebound, no hepatosplenomegaly, no masses. EXTREMITIES: 2+ pulses, warm, well-perfused, no edema. NEUROLOGICAL: Cranial nerves II through XII grossly intact. Normal speech, gait not observed. PSYCH: Normal mood, normal affect. SKIN: Warm, dry, normal turgor, no rashes or lesions noted. LABS Laboratory Results - last 24 hr 03/10/17 07:00 WBC 13.2 H RBC 4.73 Hgb 13.8 Hct 40.3 MCV 85.1 MCH 29.2 MCHC 34.4 RDW 12.3 Plt Count 152 MPV 7.8 HOSPITAL COURSE: Date of Admission:03/07/17 Date of Discharge: 03/10/17 Admitting diagnosis: L4-5 disc herniation with right L4-L5 root impingement and right L5-S1 foraminal stenosis, right sciatica, right foot drop Procedures:Partial R L4, L5, S1 laminectomies, medial facetectomies, foramenotomies; microdissection 03/08/17 Pre hospital course Patient is a 51 year old male presented to the ED with the chief complaints of " Right hip, ankle, leg pain with right foot drop". As per the patient, he was diagnosed to have Disc herniation L4-S1 in Sep, 2016. Since then he tried physical therapy, shots from pain management and recently since 8 weeks has been going to Chiropracter 3 times/week. However, it hasn't helped. Its getting worse. Since few days, he noticed right foot drop hence went to Dr. Jeffrey's office today and was recommended to come to the ED for surgery tomorrow. Denies chest pain, sob, cough, palpitation, abdominal pain, nausea or vomiting, headache, dizziness, vertigo. Bowel/Bladder habit normal. Sleep/Appetite normal. Has been taking Medical marijuana for his pain. Subsequent hospital course admitting to medicine. underwent surgery by Dr Jeffrey. pain was controlled and ambulated 150 with PT. requesting to go home, does not want JOE. d/c home with RW. plan d/w present at bedside. no narcotics prescribed Minutes to complete discharge: 40 Discharge Summary Reason For Visit: FOOT DROP HERNIATED LUMBAR DISC Current Active Problems Foot drop (Acute) Herniated lumbar intervertebral disc (Acute) Condition: Improved - Instructions Diet, Activity, Other Instructions: Post-op Instructions Diet: Regular Activity:May shower but keep incision line dry. Change dressing afterwards. Ambulate with rolling walker, increase activity as tolerated Pain: Take Tylenol as needed for pain. Restrictions: Do not lift anything over 10lbs. Additional Instructions: Keep incision line clean and dry. Change dressing daily. Report any chills, fever (100 or greater), any wound drainage, or any neurological changes to Dr. Jeffrey. Do not drive for two weeks. Initial post-op appt: Call Dr Jeffrey's office [phone] to be seen in about 2 weeks for appt Referrals: Jerome Jeffrey MD [Staff Physician] - STAFF,NOT ON [Primary Care Provider] - Disposition: HOME - Home Medications Comprehensive Discharge Medication List: Ambulatory Orders Montelukast Sodium [Singulair] 10 mg PO DAILY 03/07/17 Duloxetine HCl [Cymbalta] 20 mg PO DAILY 03/08/17 Gabapentin 300 mg PO TID 03/08/17 Walker [Ultra-Light Rollator] 1 each ASDIR #1 each 03/10/17 This patient is new to me today: No Emergency Visit: Yes ED Registration Date: 03/07/17 Care time: The patient presented to the Emergency Department on the above date and was hospitalized for further evaluation of their emergent condition. Critical Care patient: No - Discharge Referral Referred to [facility] No
[2017-03-10 16:17] VITALS: BP 142/91; PULSE 94; TEMP 98.1
--- NOTE | 2017-03-13 15:12 | OP ---
DATE OF OPERATION: 03/08/2017 SURGEON: Jerome Jeffrey MD [employer] INSTRUCTOR: ARCENIO Muñiz. ANESTHESIA: General endotracheal. ANESTHESIOLOGIST: Dr Dallas. PREOPERATIVE DIAGNOSES: 1. Progressive right foot drop. 2. Central and right L4-5 paracentral disk protrusions, partially calcified and fibrotic. 3. Right L5-S1 foraminal stenosis. 4. Obesity. POSTOPERATIVE DIAGNOSES: 1. Progressive right foot drop. 2. Central and right L4-5 paracentral disk protrusions, partially calcified and fibrotic. 3. Right L5-S1 foraminal stenosis. 4. Obesity. PROCEDURES PERFORMED: 1. Partial left L4, L5, and S1 laminectomies including medial facetectomy and foraminotomy for decompression of thecal sac as well as right L4, L5 and S1 nerve roots (60099, [id number], [id number]). 2. Microsurgical dissection with operative microscope and microsurgical techniques (20830). FINDINGS: 1. Extremely sensitive right L5 nerve root. 2. Spinal stenosis L4-5 and lateral recess stenosis right L5-S1. 3. Fibrotic/calcified disk herniation L4-5. INDICATION: The patient is a 51-year-old male with chronic low back pain and right lower extremity radiculopathy. His symptoms worsened last spring, and he experienced worsening sciatic going down the right lower extremity . He was subsequently found to have disk herniation and spinal stenosis. Despite conservative treatment including pain management injection, his symptoms worsened. He was seen the day prior to admission, was found to have moderate right foot drop. He was advised to come to the emergency room but could not get a ride until earlier yesterday. The patient is now consented for right L4-5 and L5-S1 decompression. The risk of procedure included but are not limited to bleeding, infection, dural tear with CSF leak, neurological injury including bowel and bladder risks, recurrent herniation and risk of general anesthesia. The patient understands the indications for the procedure, the procedure in detail, risks and benefits and alternatives for treatment of his lumbar condition and wished to proceed with surgery. No guarantees were given for favorable outcome. The patient understands that his foot drop may or may not improve after decompression is completed. PROCEDURE IN DETAIL: After the patient was taken to the operating room, he was placed in supine position. After general anesthesia was induced and appropriate monitoring lines were placed, he was turned to a prone position on a Elver frame. All pressure points were checked and padded. Lumbar region was cleaned with alcohol and prepped with Betadine. A localizing x-ray was obtained with a spinal needle in place. After the position was verified, and the patient was sterilely prepped and draped, an approximately 2 1/2-inch to 3-inch incision was opened in the midline. Periosteal dissection was carried out on the right side only with periosteal elevator and monopolar electrocautery. The bottom of the right L4, L5 and S1 lamina was exposed and 2 self-retaining retractors were inserted. Another localizing x- ray was obtained. It demonstrated the exposure of the L4-5, L5-S1. I performed partial laminectomy at the bottom of the lamina of L4, top and bottom of lamina of L5 and top of lamina S1 was carried out with a high-speed pneumatic drill, angle curette and a Kerrison rongeur. Medial facetectomy was also carried out at L4-5, L5-S1 to decompress the lateral recess adequately. After most of the bone work was completed with the use of the operating microscope for both illumination and magnification , the underlying ligamentum flavum was dissected free with an endo curette and resected with Kerrison rongeur. Ligamentum was somewhat thickened. The dura was bulging out at the L4-5 level immediately. It was under pressure. Surgical lateral exposure was needed in order to gain access to the anterolateral space of the spine at the L4 -5 level. The right L5 nerve root was were followed toward the neuroforamen and decompressed with angled curette and Kerrison rongeur. The nerve root was significantly adhesed to the ventral calcified disk herniation. This was carefully dissected free with dissectors. The disk material was palpated and was felt to be extremely hard and fibrotic. Because of this adhesions, it was decided not to remove the disk material to avoid a dural tear. So, the lateral exposure was gained by shaving down the facet joint and to thoroughly decompress the thecal sac as well as the right L4 and L5 nerve roots. After the L4-5 nerve root was decompressed and the thecal sac was decompressed, hemostasis was obtained with bipolar cautery as well as thrombin-soaked powder Gelfoam. Attention was then turned to the L5-S1 interspace where partial L5 and S1 laminectomy was completed including medial facetectomy and L5-S1 foraminotomy. The S1 nerve root was thoroughly decompressed in addition to L5 nerve root and neuroforamen. Epidural hemostasis was obtained with bipolar cautery. In summary, right L4, L5, and S1 nerve roots are thoroughly decompressed as well as the thecal sac at these levels. Valsalva maneuver was performed and there was no CSF leak. The wound was then irrigated with a copious amount of antibiotic- containing irrigation. Then 10 mL of 0.25% Marcaine was injected to the paraspinal muscle on the right side only. The wound was once again irrigated. A Valsalva maneuver was performed and there was no CSF drainage noted. Layered Surgicel were laid in the epidural pace. Dorsolumbar fascia and muscle hemostasis was obtained with bipolar cautery. Some degree of venous oozing was noted likely because the patient was somewhat obese and was in the prone position. Dorsolumbar fascia was then closed with 0 Vicryl suture, subcutaneous fascia closed with 3-0 Vicryl sutures. Skin was closed with 4-0 Vicryl running subcuticular suture. Steri-Strips and sterile occlusive dressing were applied. The patient tolerated the procedure well, was returned to the supine position and extubated. All needle and lap counts were correct. OR timeout procedure was followed. One dose of 2 g of Ancef was given prior to the incision. The patient was extubated in the operating room, moving bilateral lower extremity as he did perioperatively. Intraoperative findings as well as the patient's condition was communicated with the patient's family in the waiting room. Yu [id number] MTDD
== END 2017-03-10 17:35 | disposition home or self-care (01) | DRG 310 ==
LOC: EDBD 15:03 → JER 15:03 → JERBED 19:59 → J6S 03-08 04:14
PROVIDERS: ADMIT Internal Medicine; ATTEND Internal Medicine
PROC: 01NB0ZZ Release Lumbar Nerve, Open Approach (ICD-10-PCS; 2017-03-08)
PROC: 0SB40ZZ Excision of Lumbosacral Disc, Open Approach (ICD-10-PCS; principal; 2017-03-08 11:30)
DX: M51.27 Other intervertebral disc displacement, lumbosacral region (principal); E66.9 Obesity, unspecified; M21.371 Foot drop, right foot; Z68.37 Body mass index [BMI] 37.0-37.9, adult; G47.33 Obstructive sleep apnea (adult) (pediatric); R11.0 Nausea; D72.829 Elevated white blood cell count, unspecified; R51 Headache; F12.10 Cannabis abuse, uncomplicated; J45.909 Unspecified asthma, uncomplicated
CPT/HCPCS: 36415; 71045-TC; 71046-TC; 72100-TC; 72131-TC; 80048; 80053; 85025; 85027; 85610; 85730; 86850; 86900; 86901; 93005; 93010; 94010; 94660; 94760; 97116-GP; 97161-GP; 99282-25